=== PATIENT | male | born 1975 | race African-American/Black ===

== ENCOUNTER 2017-01-25 16:51 | Emergency (ER) | payer OTHER ==
[2017-01-25 16:51] VITALS: BMI 41.1
[2017-01-25 16:54] VITALS: BP 131/78; TEMP 98.9
--- NOTE | 2017-01-25 17:18 | ED.PDOC ---
General ED Provider: Dr. CELINA LOPEZ JR Chief Complaint: Ankle Pain/Injury Stated Complaint: going to get on bus to go to dialysis yesterday and twisted right ankle. has swelling and pain[ End ]98.9 96 18 131/78 96% 10 Time Seen by Physician: 17:18 Mode of Arrival: Walk-In Information Source: Patient Exam Limitations: No limitations Nursing and Triage Documentation Reviewed and Agree: No Review of Systems - Review Of Systems Constitutional: Reports: No symptoms Eyes: Reports: No symptoms Ears, Nose, Mouth, Throat: Reports: No symptoms Respiratory: Reports: No symptoms Cardiac: Reports: No symptoms GI: Reports: No symptoms : Reports: No symptoms Musculoskeletal: Reports: Joint pain (right nkle), Joint swelling Skin: Reports: No symptoms Neurological: Reports: No symptoms Endocrine: Reports: No symptoms Hematologic/Lymphatic: Reports: No symptoms All Other Systems: Other Past Medical History - Past Medical History Endocrine: Reports: DM 2 Cardiovascular: Reports: Hypertension Respiratory: Reports: None Hematological: Reports: None Gastrointestinal: Reports: None Genitourinary: Reports: 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) Neuro/Psych: Reports: CVA Musculoskeletal: Reports: None Cancer: Reports: None - Surgical History General Surgical History: Reports: Other (av graft) - Family History Family History: Reports: Unknown - Social History Smoking Status: Never smoker Hx Substance Use: No Alcohol Screening: None Physical Exam - Physical Exam Appearance: Well-appearing Pain Distress: Moderate Musculoskeletal: Normal strength, ROM intact, No calf tenderness (tender ), Edema Critical Care Note - Critical Care Note Total Time (mins): 0 Course - Course Orders, Labs, Meds: Orders Category Date Time Status ANKLE, RIGHT MIN 3 VIEWS Stat RADS 01/25/17 17:46 Completed Vital Signs: Temp Pulse Resp BP Pulse Ox 01/25/17 16:51 98.9 F 96 H 18 131/78 96 Departure - Departure Time of Disposition: 18:27 Disposition: HOME SELF-CARE Discharge Problem: Moderate right ankle sprain Qualifiers: Encounter type: initial encounter Qualified Code(s): S93.401A - Sprain of unspecified ligament of right ankle, initial encounter Instructions: Ankle Sprain (ED) Condition: Good Pt referred to PMD for follow-up: Yes Additional Instructions: crutches for three days and until pain resolved adilene wrap for comfort ice 20 minutes three times a day recheck PMD if not resolved in one week] return if worsening Allergies/Adverse Reactions: Allergies oxaprozin [From Daypro] Adverse Reaction (Verified 01/25/17 16:55) vancomycin Adverse Reaction (Verified 01/25/17 16:55) Home Medications: Ambulatory Orders Actos Pill 06/16/13 Clonidine Pill 06/16/13 Exforge Pill 06/16/13 Metropolol Pill 06/16/13 Minoxidil Pill 10 mg PO DAILY PRN 06/16/13 Prilosec Pill 20 mg PO BID 06/16/13 Simvastatin 20 mg PO DAILY 06/16/13 Singulair Pill 10 mg PO DAILY 06/16/13
--- NOTE | 2017-01-25 18:08 | DI ---
EXAM: Three views of the right ankle HISTORY: Injury, twisted ankle TECHNIQUE: AP lateral, oblique views of the right ankle were obtained. FINDINGS: No acute fractures are seen. There is anatomic alignment. The soft tissues are normal. T here is medial and lateral soft tissue swelling. IMPRESSION: There is soft tissue swelling without acute fracture dislocation seen within the right a nkle.
== END 2017-01-25 18:38 | disposition home or self-care (01) ==
LOC: ED 16:51
DX: S93.401A Sprain of unspecified ligament of right ankle, initial encounter (principal); X50.1XXA Overexertion from prolonged static or awkward postures, initial encounter
CPT/HCPCS: 99283

== ENCOUNTER 2017-04-12 07:29 | Outpatient (CLI) ==
[2017-04-12 08:12] LABS: BASOPHILS % (AUTO) 0.6 % (0.0-3.0); EOSINOPHILS # (AUTO) 0.1 K/ul (0.0-0.7); EOSINOPHILS % (AUTO) 1.3 % (0.0-7.0); HEMATOCRIT 39.8 % (42.0-52.0); HEMOGLOBIN 13.2 g/dl (14.0-18.0); IMMATURE GRANULOCYTE % (AUTO) 0.2 % (0.0-5.0); LYMPHOCYTES # (AUTO) 1.3 K/uL (0.60-3.4); LYMPHOCYTES % (AUTO) 20.9 (10.0-50.0); MEAN CORPUSCULAR HEMOGLOBIN 31.4 pg (27.0-31.0); MEAN CORPUSCULAR HGB CONC 33.2 (31.8-35.4); MEAN CORPUSCULAR VOLUME 94.5 fl (80.0-94.0); MONOCYTES # (AUTO) 0.5 K/uL (0.4-2.0); MONOCYTES % (AUTO) 8.5 (0-10); NEUTROPHILS # (AUTO) 4.3 K/ul (2.0-6.9); NEUTROPHILS % (AUTO) 68.5; PLATELET COUNT 180 10^3/uL (140-440); RED BLOOD COUNT 4.21 10^6/ul (4.70-6.10); WHITE BLOOD COUNT 6.26 K/ul (4.2-10.2)
--- NOTE | 2017-04-12 08:44 | DI ---
EXAM: CHEST FRONTAL AND LATERAL VIEWS HISTORY: Hypertension. COMPARISON: None FINDINGS: Heart size and mediastinal contour within normal limits. No acute infiltrates. Normal vascularity with no pleural fluid or pneumothorax. The bony thorax has no acute finding. IMPRESSION: No acute process.
[2017-04-12 08:54] LABS: ALBUMIN 3.6 g/dL (3.4-5.0); ALBUMIN/GLOBULIN RATIO 0.77; ANION GAP 19.7; BILIRUBIN,TOTAL 0.69 mg/dL (0.00-1.20); BUN/CREATININE RATIO 2.8; CALCIUM 8.9 mg/dL (8.2-10.2); CHOL/HDL RATIO 6.2 (4.5-6.4); POTASSIUM 3.7 mmol/L (3.5-5.1); TOTAL PROTEIN 8.3 g/dL (6.4-8.2)
[2017-04-12 09:47] LABS: CREATININE 11.4 mg/dL (0.60-1.10)
== END 2017-04-12 07:30 | disposition home or self-care (01) ==
LOC: CAR 07:29
PROVIDERS: ATTEND Family Medicine
DX: Z00.00 Encounter for general adult medical examination without abnormal findings (principal); E11.9 Type 2 diabetes mellitus without complications; I10 Essential (primary) hypertension; N18.9 Chronic kidney disease, unspecified; E78.00 Pure hypercholesterolemia, unspecified; Z79.899 Other long term (current) drug therapy
CPT/HCPCS: 36415; 80053; 80061; 83036; 84439; 84443; 85025; 86140; 93005; 93010

== ENCOUNTER 2017-04-14 07:30 | Outpatient (CLI) ==
[2017-04-14 08:36] LABS: ALBUMIN 3.7 g/dL (3.4-5.0); ANION GAP 19.7; BUN/CREATININE RATIO 2.51; PHOSPHORUS 3.6 mg/dL (2.5-4.9); POTASSIUM 3.7 mmol/L (3.5-5.1)
[2017-04-14 08:52] LABS: CREATININE 10.74 mg/dL (0.60-1.10)
== END 2017-04-14 07:31 | disposition home or self-care (01) ==
LOC: LAB 07:30
PROVIDERS: ATTEND Family Medicine
DX: N18.9 Chronic kidney disease, unspecified (principal); N19 Unspecified kidney failure; Z99.2 Dependence on renal dialysis; I10 Essential (primary) hypertension; E11.9 Type 2 diabetes mellitus without complications; R74.8 Abnormal levels of other serum enzymes
CPT/HCPCS: 36415; 80069

== ENCOUNTER 2017-05-01 15:31 | Outpatient (CLI) ==
[2017-05-01 15:54] LABS: BASOPHILS % (AUTO) 0.5 % (0.0-3.0); EOSINOPHILS # (AUTO) 0.1 K/ul (0.0-0.7); EOSINOPHILS % (AUTO) 2.4 % (0.0-7.0); HEMATOCRIT 38.5 % (42.0-52.0); HEMOGLOBIN 13.1 g/dl (14.0-18.0); IMMATURE GRANULOCYTE % (AUTO) 0.2 % (0.0-5.0); LYMPHOCYTES # (AUTO) 1.8 K/uL (0.60-3.4); LYMPHOCYTES % (AUTO) 29.6 (10.0-50.0); MEAN CORPUSCULAR HEMOGLOBIN 31.2 pg (27.0-31.0); MEAN CORPUSCULAR VOLUME 91.7 fl (80.0-94.0); MONOCYTES # (AUTO) 0.5 K/uL (0.4-2.0); MONOCYTES % (AUTO) 7.9 (0-10); NEUTROPHILS # (AUTO) 3.5 K/ul (2.0-6.9); NEUTROPHILS % (AUTO) 59.4; PLATELET COUNT 187 10^3/uL (140-440); WHITE BLOOD COUNT 5.94 K/ul (4.2-10.2)
[2017-05-01 16:18] LABS: ALBUMIN 3.4 g/dL (3.4-5.0); ALBUMIN/GLOBULIN RATIO 0.76; ANION GAP 20.6; BILIRUBIN,TOTAL 0.8 mg/dL (0.00-1.20); BUN/CREATININE RATIO 3.11; CALCIUM 8.2 mg/dL (8.2-10.2); POTASSIUM 3.6 mmol/L (3.5-5.1); TOTAL PROTEIN 7.9 g/dL (6.4-8.2)
[2017-05-01 16:26] LABS: CREATININE 14.46 mg/dL (0.60-1.10)
== END 2017-05-01 15:32 | disposition home or self-care (01) ==
LOC: LAB 15:31
PROVIDERS: ATTEND Family Medicine
DX: N18.9 Chronic kidney disease, unspecified (principal); E11.9 Type 2 diabetes mellitus without complications; I10 Essential (primary) hypertension
CPT/HCPCS: 36415; 80053; 85025

== ENCOUNTER 2017-05-29 08:21 | Outpatient (CLI) ==
--- NOTE | 2017-05-29 09:34 | CT ---
EXAM: CT chest without contrast HISTORY: Lung nodule, less than [address] COMPARISON: None TECHNIQUE: CT chest performed without intravenous contrast. Coronal and sagittal reformatted images obtained. FINDINGS: Thyroid and thoracic inlet appear normal. Heart top normal in size. Coronary calcificati ons. No pericardial effusion. Aorta normal in caliber. Mild atherosclerosis. Esophagus unremarkab le. Evaluation for lymphadenopathy limited without contrast. No lymphadenopathy identified. Ceci us cysts occupy majority of the kidneys. Mild splenomegaly. No acute abnormalities of the bones. Ce ntral airway patent. No airspace consolidation. No pleural effusion. No pneumothorax. Granulomato us calcification. 4 mm pulmonary nodule right lung image 23. 3 mm pulmonary nodule left lung image 36 IMPRESSION: 1. No acute cardiopulmonary process. 2. At least two pulmonary nodules measuring up to [address] chest follow-up in 12 months if patient at high risk for malignancy, such as a smoker or former smoker. Additional granulomatous orquidea cification. 3. Polycystic kidney disease may represent autosomal dominant polycystic kidney disease. Kidneys inc ompletely imaged. 4. Mild splenomegaly. 5. Mild atherosclerosis..
== END 2017-05-29 08:22 | disposition home or self-care (01) ==
LOC: RAD 08:21
PROVIDERS: ATTEND Transplant Surgery
DX: N18.9 Chronic kidney disease, unspecified (principal); E11.9 Type 2 diabetes mellitus without complications; I10 Essential (primary) hypertension; N17.9 Acute kidney failure, unspecified; Z99.2 Dependence on renal dialysis; R91.1 Solitary pulmonary nodule
CPT/HCPCS: 36415; 80053

== ENCOUNTER 2017-06-28 12:10 | Outpatient (CLI) | payer OTHER ==
--- NOTE | 2017-06-28 12:53 | DI ---
Examination: Single view of the chest. HISTORY: Pharyngitis/flu-like symptoms. COMPARISON: 06/12/2016. FINDINGS: The cardiomediastinal silhouette appears normal in overall size and configuration. Minima l aortic arch atherosclerosis is questioned. Lungs otherwise clear without focal pulmonary infiltrat e. Minimal atelectatic change questioned at the left lateral base. There is no significant pleural fluid. The osseous structures without significant abnormalities. IMPRESSION: No acute cardiopulmonary abnormality.
== END 2017-06-28 12:11 | disposition home or self-care (01) ==
LOC: LAB 12:10
PROVIDERS: ATTEND Family Medicine
DX: J02.9 Acute pharyngitis, unspecified (principal); R68.89 Other general symptoms and signs; N18.9 Chronic kidney disease, unspecified; E78.5 Hyperlipidemia, unspecified; N17.9 Acute kidney failure, unspecified; Z79.899 Other long term (current) drug therapy
CPT/HCPCS: 36415; 80053; 80061; 83036; 85025; 87502; 87651

== ENCOUNTER 2017-09-08 09:07 | Outpatient (CLI) | payer OTHER | END 2017-09-08 09:08 | disposition home or self-care (01) | LOC: LAB 09:07 | PROVIDERS: ATTEND Family Medicine | DX: E78.5 Hyperlipidemia, unspecified (principal); N19 Unspecified kidney failure; I10 Essential (primary) hypertension; Z99.2 Dependence on renal dialysis; Z79.899 Other long term (current) drug therapy | CPT/HCPCS: 36415; 80053; 80061; 83036; 85025 ==

== ENCOUNTER 2017-12-27 07:53 | Outpatient (CLI) | END 2017-12-27 07:54 | disposition home or self-care (01) | LOC: LAB 07:53 | PROVIDERS: ATTEND Family Medicine | DX: E78.5 Hyperlipidemia, unspecified (principal); I10 Essential (primary) hypertension; N18.9 Chronic kidney disease, unspecified; Z99.2 Dependence on renal dialysis; Z79.899 Other long term (current) drug therapy; E66.01 Morbid (severe) obesity due to excess calories | CPT/HCPCS: 36415; 80053; 80061; 83036; 84439; 84443; 85025 ==

== ENCOUNTER 2019-01-12 06:55 | Emergency (ER) ==
[2019-01-12 07:00] VITALS: BP 158/89; TEMP 98.6; BMI 41.3
--- NOTE | 2019-01-12 08:02 | CT ---
EXAM: CT head without contrast CLINICAL HISTORY: Headache after trauma TECHNIQUE: Multiple axial images were obtained through the brain without contrast. Sagittal and cor onal reformats were obtained. FINDINGS: No priors are available. The ventricles are normal in size and configuration. No mass, mas s effect, shift of the midline, evidence of acute stroke, or extra-axial fluid or blood collections a re seen. The visualized paranasal sinuses are well-aerated. The mastoid air cells are clear. The b pascale calvarium is intact. IMPRESSION: No acute intracranial process
--- NOTE | 2019-01-12 08:04 | CT ---
EXAM: CT scan of the facial bones without contrast HISTORY: fall TECHNIQUE: Helical imaging of the facial bones was performed without contrast. Axial images and cor onal and sagittal reconstructions were provided for interpretation. FINDINGS: The orbital floor appears intact. The medial and lateral ramos of the orbits are intact. No acute fractures are seen within the nasal bones and zygomatic arch. The mandible and maxilla sue ear intact. The paranasal sinuses and mastoid air cells are clear. IMPRESSION: No acute fracture dislocation seen within the facial bones.
--- NOTE | 2019-01-12 08:11 | CT ---
EXAM: CT chest without contrast HISTORY: Fall COMPARISON: 05/29/2079 TECHNIQUE: Multiple axial images of the chest were obtained with/without intravenous contrast. Image s were reformatted in the sagittal and coronal planes. FINDINGS: Normal thyroid. The heart is enlarged. Trace pericardial effusion. Normal diameter aorta. Scattere d mild atherosclerotic calcifications in the aorta. No enlarged mediastinal, hilar or axillary lymph nodes. Patchy bilateral ground-glass opacities in the perihilar and dependent lung distribution. No pneumot horax, pleural effusion, focal consolidation. No suspicious pulmonary nodule. No acute findings within the visualized upper abdomen. Multiple bilateral hypodense renal cysts, whi ch measure up to 3.2 cm in the right superior pole and 3.5 cm in the left mid pole. This is a partia lly visualized. No acute osseous abnormality. No aggressive osseous lesion. IMPRESSION: 1. No post-traumatic findings. 2. Patchy bilateral ground-glass opacities throughout the bilateral lungs, more prominent in the per ihilar and dependent distribution. Findings suggest pulmonary edema. Multifocal pneumonia is not ex cluded. 3. Cardiomegaly. 4. Partially visualized bilateral renal cysts.
--- NOTE | 2019-01-12 08:19 | CT ---
EXAM: CT of the thoracic spine without contrast dated 01/12/2019. Clinical history: Back pain TECHNIQUE: Multiple axial images were obtained through the thoracic spine without contrast. Sagitta l and coronal reformats were obtained. FINDINGS: Infiltrate is seen in the right upper lobe in both lower lobes. Pulmonary vascular conges tion is present. Alignment of the thoracic spine is normal. Multilevel degenerative changes are seen with disc space loss, osteophytic spurring and Schmorl's nodes. No acute fractures are appreciated. The visualized portions of the ribs show no evidence of fracture. No central canal stenosis is seen. IMPRESSION: Right upper lobe and bilateral lower lobe infiltrates Pulmonary vascular congestion Multilevel degenerative changes throughout the spine with no acute findings
--- NOTE | 2019-01-12 08:19 | CT ---
EXAM: CT lumbar spine without contrast HISTORY: Pain after fall TECHNIQUE: Multi-slice transaxial helical with coronal and sagittal reformatted views. COMPARISON: None FINDINGS: No acute fracture or spondylolisthesis. Spinal alignment is preserved. Vertebral body heights are p reserved. Incidental Schmorl's node at the the superior inferior endplates of T12. Paraspinal soft tissues are unremarkable. Visualized retroperitoneum demonstrates atherosclerotic calcifications throughout the aorta. Bilate ral hypodense renal cysts, which are incompletely visualized. No evidence of high-grade canal or foraminal stenosis throughout the lumbar spine. Small broad-based disc bulge and facet arthrosis at L5-S1 contribute to mild/moderate bilateral foraminal narrowing. IMPRESSION: 1. No acute osseous abnormality. 2. No high-grade canal or foraminal narrowing. Moderate foraminal narrowing at L5-S1 bilaterally. 3. Bilateral renal cysts, incompletely evaluated. 4. Atherosclerosis.
--- NOTE | 2019-01-12 08:33 | ED.PDOC ---
General ED Provider: Dr. MICHEAL COKER Chief Complaint: Fall Stated Complaint: accidental fall Time Seen by Physician: 07:00 Mode of Arrival: Wheelchair Information Source: Patient, Family Exam Limitations: No limitations Primary Care Provider: MARGE POON Nursing and Triage Documentation Reviewed and Agree: Yes Does patient meet sepsis criteria?: No System Inflammatory Response Syndrome: Not Applicable Sepsis Protocol: For patient's 13 years and over: Temp is 96.8 and below OR 101 and greater Pulse >90 BPM Resp >20/minute Acutely Altered Mental Status Are patient's symptoms suggestive of a new infection, such as: -Pneumonia -Skin, Soft Tissue -Endocarditis -UTI -Bone, Joint Infection -Implantable Device -Acute Abdominal Infection -Wound Infection -Meningitis -Blood Stream Catheter Infection -Unknown Trauma/Injury Complaint Exam - Trauma Complaint/Exam Location of Pain or Injury: Reports: Face, Neck, Chest, Back Mechanism of Injury: Reports: Fall Onset/Duration: today Symptoms Are: Still present Timing of Treatment: Immediate Initial Severity: Moderate Current Severity: Mild Character: Reports: Aching Aggravating: Reports: None Alleviating: Reports: None Associated Signs and Symptoms: Reports: Swelling (lip). Denies: LOC, Confusion , Memory loss, Lethargy, Vomiting, Bleeding, Bruising, Extremity disuse, Painful respiration, Hoarseness, Dysphagia, Hemoptysis, Significant blood loss Nexus Low Risk Criteria: No evidence of intoxicat., No Altered LOC, No focal neuro deficit, No distracting injuries Glascow Coma Scale (see protocol): 15 Skin Findings: Present: Normal findings Differential Diagnoses: Fracture, Sprain, Strain Review of Systems - Review Of Systems Constitutional: Reports: No symptoms Eyes: Reports: No symptoms Ears, Nose, Mouth, Throat: Reports: No symptoms Respiratory: Reports: No symptoms Cardiac: Reports: No symptoms GI: Reports: No symptoms : Reports: No symptoms Musculoskeletal: Reports: No symptoms Skin: Reports: No symptoms Neurological: Reports: No symptoms Endocrine: Reports: No symptoms Hematologic/Lymphatic: Reports: No symptoms All Other Systems: Reviewed and Negative Past Medical History - Past Medical History Previously Healthy: Yes Endocrine: Reports: DM 2 Cardiovascular: Reports: Hypertension Respiratory: Reports: None Hematological: Reports: None Gastrointestinal: Reports: None Genitourinary: Reports: 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) Neuro/Psych: Reports: CVA Musculoskeletal: Reports: None Cancer: Reports: None - Surgical History General Surgical History: Reports: Other (av graft) - Family History Family History: Reports: Unknown - Social History Smoking Status: Never smoker Hx Substance Use: No Alcohol Screening: None Physical Exam - Physical Exam Appearance: Well-appearing, No pain distress, Well-nourished Eyes: CHRISTOFER, EOMI, Conjunctiva clear ENT: Ears normal, Nose normal, Oropharynx normal Respiratory: Airway patent, Breath sounds clear, Breath sounds equal, Respirations nonlabored Cardiovascular: RRR, Pulses normal, No rub, No murmur GI/: Soft, Nontender, No masses, Bowel sounds normal, No Organomegaly Musculoskeletal: Normal strength, ROM intact, No edema, No calf tenderness Skin: Warm, Dry, Normal color Neurological: Sensation intact, Motor intact, Reflexes intact, Cranial nerves intact, Alert, Oriented Psychiatric: Affect appropriate, Mood appropriate Interpretation - Radiology Interpretation Radiology Interpretation By: Radiologist Radiology Results: No acute changes (infiltrate is noted vs congestion pt is not S.O.B no cough no fever due for dialysis today) Critical Care Note - Critical Care Note Total Time (mins): 0 Course - Course Orders, Labs, Meds: Orders Category Date Time Status CT CHEST W/O CONTRAST Stat RADS 01/12/19 07:[address] HEAD W/O CONTRAST Stat RADS 01/12/19 07:[address] LUMBAR SPINE W/O CONTRAST Stat RADS 01/12/19 07:[address] MAXILLOFACIAL W/O CONTRAST Stat RADS 01/12/19 07:[address] THORACIC SPINE W/O CONTRAST Stat RADS 01/12/19 07:09 Completed Vital Signs: Temp Pulse Resp BP Pulse Ox 01/12/19 06:56 98.6 F 93 H 20 158/89 H 100 Departure - Departure Time of Disposition: 08:33 Disposition: HOME SELF-CARE Discharge Problem: Back pain due to injury Fall Qualifiers: Encounter type: initial encounter Qualified Code(s): W19.XXXA - Unspecified fall, initial encounter Instructions: Acute Low Back Pain (ED) Condition: Good Pt referred to PMD for follow-up: Yes IPMP verified?: No Additional Instructions: Please call your Family Physician as soon as possible to schedule a follow-up appointment. radilogist thinks you may have pneumonia. if your short of breath coughing or sick in any shape return immediately Allergies/Adverse Reactions: Allergies gentamicin Adverse Reaction (Verified 01/12/19 07:01) Itching, SWELLING ONLY WHEN MIXED WITH VANCOMYCIN, CAN TAKE BOTH MEDS SEPARATELY morphine Adverse Reaction (Verified 01/12/19 07:01) Itching oxaprozin [From Daypro] Adverse Reaction (Verified 01/12/19 07:01) vancomycin Adverse Reaction (Verified 01/12/19 07:01) Itching, SWELLING ONLY WHEN MIXED WITH GENTAMICIN, CAN TAKE BOTH MEDS SEPARATELY Home Medications: Ambulatory Orders Amlodipine Besylate [Norvasc] 10 mg PO DAILY 01/12/19 Aspirin [Aspirin Chewable] 81 mg PO DAILYWM 01/12/19 Cinacalcet HCl [Sensipar] 30 mg PO DAILY 01/12/19 Gabapentin [Neurontin] 300 mg PO TID 01/12/19 Hydrocodone Bit/Acetaminophen [[place] 5-325] 1 tab PO Q6HR 01/12/19 Lisinopril [Zestril] 20 mg PO DAILY 01/12/19 Metoprolol Tartrate [Lopressor] 100 mg PO TID 01/12/19 Montelukast Sodium [Singulair] 10 mg PO BEDTIME 01/12/19 Omeprazole [Prilosec] 20 mg PO BIDAC 01/12/19 Rosuvastatin Calcium [Crestor] 10 mg PO BEDTIME 01/12/19 Sucroferric Oxyhydroxide [Velphoro] 500 mg PO DIRECTED 01/12/19 Trazodone HCl [Desyrel] 50 mg PO BEDTIME 01/12/19
== END 2019-01-12 08:46 | disposition home or self-care (01) ==
LOC: ED 06:55
DX: M54.9 Dorsalgia, unspecified (principal); S09.93XA Unspecified injury of face, initial encounter; S19.9XXA Unspecified injury of neck, initial encounter; S29.9XXA Unspecified injury of thorax, initial encounter; W19.XXXA Unspecified fall, initial encounter; R91.8 Other nonspecific abnormal finding of lung field
CPT/HCPCS: 99283